=== PATIENT | female | born 1940 | race Caucasian/White ===

== ENCOUNTER 2019-12-14 20:40 | Observation (INO) | payer MEDICARE ==
[~2019-12-14] VITALS: Ht 157.5 cm; Wt 45.8 kg
--- NOTE | 2019-12-14 20:41 | NUR ---
PT ARRIVED VIA EMS. SEE TRIAGE NOTE. STROKE ALERT CALLED.. AT BEDSIDE.
--- NOTE | 2019-12-14 20:50 | NUR ---
TELESTOKE IN PROGRESS.
[2019-12-14 21:09] LABS: GFR > 60 ML/MIN (>=60 (CALC)); GFR FOR AFR.AMER. > 60 ML/MIN (>=60 (CALC))
[2019-12-14 21:10] LABS: HEMATOCRIT 39.8 % (37.0-47.0); HEMOGLOBIN 12.2 g/dl (12.0-16.0); MEAN CELL VOLUME 92.8 fL CALC (80.0-100.0); MEAN CORPUSCULAR HGB 28.4 pG CALC (26.0-32.0); MEAN CORPUSCULAR HGB CONC 30.7 g/L CALC (32.0-36.0); NEUT# 3.17 thou/uL (2.00-7.15); RED BLOOD COUNT 4.29 mill/uL (4.20-5.60); RED CELL DISTRI WIDTH 14.3 % (11.5-15.5)
[2019-12-14 21:31] LABS: ACT PARTIAL THROMBO TIME 25.9 SECONDS (20.0-32.5); ALBUMIN 4.5 g/dL (3.2-5.0); ALKALINE PHOSPHATASE 104 u/l (38-126); ANION GAP 22 (6-22 (CALC)); BILIRUBIN, TOTAL 0.6 mg/dL (0.0-1.4); BUN 13 mg/dL (8-23); BUN/CREATININE RATIO 16 (12-20 (CALC)); CARBON DIOXIDE 18 mmol/l (22-30); CHLORIDE 101 mmol/l (95-108); CREATININE 0.8 mg/dL (0.5-1.0); GFR > 60 ML/MIN (>=60 (CALC)); GFR FOR AFR.AMER. > 60 ML/MIN (>=60 (CALC)); POTASSIUM 3.9 mmol/l (3.5-5.1); PROTHROMBIN TIME 10.4 SECONDS (9.0-12.5); SGOT/AST 36 u/l (9-36); SODIUM 137 mmol/l (137-146)
[2019-12-14 21:43] LABS: MYOGLOBIN 294 ng/mL (0 - 62)
--- NOTE | 2019-12-14 22:30 | NUR ---
PT RESTING. NAD. TROUBLE FOLLOWING COMMANDS. A/O AT PRESENT.
--- NOTE | 2019-12-14 23:50 | NUR ---
REPORT TO FAYE MARCUS/ICU AND PT TRANSFERRED TO FLOOR VIA STRETCHER WITH PORTABLE MONITOR. BY Sujey FORBES RN.
[2019-12-15] VITALS (21 sets, daily range): BP systolic 85–134; BP diastolic 46–75
--- NOTE | 2019-12-15 | NUR ---
RECEIVED PT FROM ER.
--- NOTE | 2019-12-15 00:10 | NUR ---
PT ASSISTED TO BED 3. [facility] PERFORMED WITH CREW MESS ATTENDANTFAYE GAYTAN. NO CHANGES NOTED.
[2019-12-15 01:17] LABS: URINE BILIRUBIN - DIPSTICK NEGATIVE (NEGATIVE); URINE BLOOD DIPSTICK TRACE-INTACT (NEGATIVE); URINE COLOR YELLOW; URINE GLUCOSE - DIPSTICK NEGATIVE (NEGATIVE); URINE KETONE NEGATIVE (NEGATIVE); URINE LEUK ESTERASE NEGATIVE (NEGATIVE); URINE NITRITE - DIPSTICK NEGATIVE (Negative); URINE PROTEIN - DIPSTICK NEGATIVE (NEG-TRACE); URINE SPECIFIC GRAVITY 1.015; URINE UROBILINOGEN - DIPSTICK 0.2 E.U./dL (0.2)
--- NOTE | 2019-12-15 02:00 | NUR ---
PT WITH EYES CLOSED, REPSONDS TO VERBAL STIMULI. NO NEEDS AT THIS TIME. CALL PATEL IN REACH.
--- NOTE | 2019-12-15 04:00 | NUR ---
PT WITH EYES CLOSED, RESPONDED TO VERBAL STIMULI. ABLE TO FOLLOW COMMANDS. PT WITH MULTI BLANKETS ON AND ROOM WARM. SPOUSE SLEEPING IN CHAIR. CALL PATEL IN REACH.
--- NOTE | 2019-12-15 06:00 | NUR ---
PT WITH EYES CLOSED, RESPONDED TO VERBAL STIMULI. NEURO CHECK ACCOMP, NO DEFICIT FROM PREVIOUS EXAMS NOTED. CALL PATEL IN REACH.
--- NOTE | 2019-12-15 08:00 | NUR ---
PT SEEN AT REST IN THE BED WITH AT BEDSIDE. PT IS TALKATIVE, AWARE OF SITUATION, ABLE TO STATE THAT SHE AND HER HAVE DEMENTIA. NO EVIDENCE OF STROKE PER LEVEL SMILE, EVEN OSTEOPATHIC NEUROLOGIST. LUNGS CLEAR, RA. PT COMPLAINS OF LEFT IV SITE HURTING WITH MOVEMENT.
[2019-12-15 09:09] LABS: CHOLESTEROL HDL RATIO 4.2 (<4.4 (CALC))
--- NOTE | 2019-12-15 10:00 | NUR ---
PT SEEN BY DR GAYTAN THIS MORNING, MRI ORDERED. PT CONTINUES WITH AT BEDSIDE, BOTH CONFUSED, AWARE OF IT, HELP EACH OTHER MUCH THEY CAN.
--- NOTE | 2019-12-15 12:00 | NUR ---
PT HAS BEEN TO MRI AND BACK, NOW BACK IN ROOM RESTING IN BED WITH AT BEDSIDE. NO COMPLAINTS, NO EVIDENCE OF STROKE OR SEIZURE.
--- NOTE | 2019-12-15 14:00 | NUR ---
PT REFUSED BATH OPPORTUNITY AT THIS TIME, SAID THAT SHE WOULD WASH UP TOMORROW. REMAINS IN ROOM. OCCASIONAL VISITOR TO ROOM.
--- NOTE | 2019-12-15 16:00 | NUR ---
PT CONTINUES BEFORE, RESTS IN THE BED IN NO DISTRESS. AT BEDSIDE.
--- NOTE | 2019-12-15 19:25 | NUR ---
PATIENT IS ALERT AND ORIENTED TO NAME,, AGE, CURRENT MONTH AND YEAR, PLACE. SHE WANTS TO KNOW HOW SHE ENDED UP IN THE HOSPITAL, PATIENT WAS EXPLAINED WHY, POC FOR TONIGHT, APTIENT AGREES. ON RA, SATS 97%, NO SOB NOTED. HEAD TO TOE NURSING ASSESSMENT PERFROMED. SR ON TELEMETRY, HR RANGES 70- 80 BPM. LFA 20 G IV INTCAT AND FLSUHES PROPERLY. NO COMPLAINTS OF PAIN, COMPLAINS OF FEELING TIRED AND CRAMPS. FOLLOWS ALL DIRECTIONS, ANSWERS QUESTIONS. HAS BILATERAL, EQUAL MODERATE BROOM STITCHER. NO FACIAL DROOP OR SLURRING NOTED. CALL LIGHT WITHIN REACH. WILL CONTINUE TO MONITOR.
--- NOTE | 2019-12-15 20:05 | NUR ---
ICE WATER PROVIDED TO PATIENT, AT BEDSIDE.
--- NOTE | 2019-12-15 20:22 | NUR ---
PATIENT'S FRIEND ON PHONE, FRINED WOULD LIKE TO TALK PATIENT, PATIENT AGREES, CALL TRANSFERRED TO PT PHONE AND HANDED TO PATIENT.
--- NOTE | 2019-12-15 23:00 | NUR ---
PATIENT GETS UP FROM BED. CONFUSED, TAKES TELE, BP CUFF, PULSE OX. REDIRECTED, REASSURED. WASHES HER TEETH USES THE BATHROOM. COMPLAINS ABOUT MONITOR ALARMING AND BR LIGHT ON. EXPLAINED WHY THE ALARMS ARE ON. PATIENT LAYS BACK IN BED. CALL LIGHT WITHIN REACH.
--- NOTE | 2019-12-15 23:30 | NUR ---
BED ALARMING, PATIENT IS GETTING UP FROM BED, CONFUSED, REPORTS SHE GOT UP TO "LOCK THE DOOR," DOES NOT KNOW WHERE SHE IS AT. PATIENT REORIENTED, REASSURED. LAYS BACK IN BED. LIGHT AND TV TURNED OFF. CALL LIGHT ITHIN REACH.
--- NOTE | 2019-12-15 23:53 | NUR ---
PATIENT'S WALKS OUT OF ROOM, LOOKS AROUND, ASKED IF HE NEEDED ANYTHING, STATES, "NO," AND WALKS BACK INTO ROOM.
[2019-12-16] VITALS (7 sets, daily range): BP systolic 83–114; BP diastolic 51–69
--- NOTE | 2019-12-16 01:43 | NUR ---
BED ALARMING. PT ATTEMPTS TO GET UP TO GO TO BATHROOM, ASSISTED STANDBY, VOIDED SMALL AMOUNT. NOW LAYS BACK IN BED, MONITOR PLACED BACK ON. PATIENT REORIENTED, REPORTS SHE THOUGHT IT WAS TIME TO GET UP AND THAT'S WHY SHE WAS ALSO PULLING HER TELEMETRY OFF. CALL LIGHT WITHIN REACH.
--- NOTE | 2019-12-16 03:54 | NUR ---
PATIENT LAYS ON HER LEFT SIDE, RESTS WITH EYES CLOSED. AT BEDSIDE.
--- NOTE | 2019-12-16 05:53 | NUR ---
PATIENT RESTS WITH EYES CLOSED. NO ACUTE DISTRES SSHOWN. AT BEDSIDE. CALL LIGHT WITHIN REACH.
--- NOTE | 2019-12-16 06:45 | NUR ---
RECIEVED REPORT FROM FAYE BOYER. ASSUMED PT CARE.
--- NOTE | 2019-12-16 08:00 | NUR ---
PT SITTING ON THE SIDE OF BED, REFUSING TO EAT BREAKFAST, PT CONCERN OF THE COST INSUED FROM HER STAY AT THIS HOTEL. PT REMAINS AT BEDSIDE, UNABLE TO TELL THIS STAFF WHERE HE IS AT EITHER. PT IS ALERT TO SELF AND TIME, NOT PLACE. PT PACING BACK AND FORTH FROM PT ROOM TO DESK, UNABLE TO RECALL WHY. PT UNABLE TO RECALL WHERE SHE IS OR WHY SHE IS HERE. BREAKFAST TRAY SET UP PT ASSURED THAT THE MEAL WAS INCLUDED AND THE SHE SHOULD EAT. PT AGREED TO EAT THE MEAL.
--- NOTE | 2019-12-16 08:15 | NUR ---
NOTIFIED PT CONTACT GILBERTO AND CAMPOS MENDEZ. CAMPOS SHARED PT HISTORY THAT SHE HAD BEEN HOMELESS AND LIVING IN HER CAR IN [place], [place]. THEY HAD THE PT COME DOWN HERE HE WAS IN A FACILITY AND THE PT WAS HOMELESS, LIVING IN THE CAR DURING THE WINTER. PT SON BROUGHT THE COUPLE DOWN HERE AND DROPPED THEM OFF, THEY ARE CURRENTLY LIVING IN AN PARK THAT IS OWNED BY FRIENDS (CAMPOS & Gilberto). NOTIFIED [facility] IRELAND .
--- NOTE | 2019-12-16 09:08 | NUR ---
DR. GAYTAN AT [facility] FOR ASSESSMENT AND TO DISCUSS PLAN OF CARE. DR. GAYTAN MADE AWARE OF CURRENT SITUATION.
--- NOTE | 2019-12-16 09:35 | NUR ---
DR. GAYTAN AND [facility] IRELAND AT BEDSIDE TO DISCUSS A VIABLE PLAN FOR DISCHARGE. PT AND PT REFUSED REHAB OR [facility]. CALL LPLACE TO FAMILY FRIENDS CAMPOS AND JEFF MENDEZ. CAMPOS STATED HE WOULD COME MEET WITH CM ETA, IN 30MIN.
--- NOTE | 2019-12-16 10:09 | NUR ---
PT RESTING IN BED, WATCHING TV. REMAINS AT BEDSIDE.
--- NOTE | 2019-12-16 10:54 | NUR ---
CAMPOS AND JEFF ARRIVED ON UNIT, MITZI IRELAND AND DR. GAYTAN NOTIFIED.
--- NOTE | 2019-12-16 11:17 | NUR ---
PT HAD VISITORS AT BEDSIDE FOR VISIT.
--- NOTE | 2019-12-16 11:39 | NUR ---
MITZI IRELAND AT BEDSIDE.
--- NOTE | 2019-12-16 13:00 | NUR ---
Discharge instructions given. Patient verbalizes understanding of same. Discharged in stable condition via Wheelchair to Home with family. All belongings sent with pt.
== END 2019-12-16 13:00 | disposition home or self-care (01) ==
LOC: ED 20:40 → ED-I 22:50 → ED 23:19 → ICU 23:20
PROVIDERS: Emergency Medicine; Internal Medicine; ADMIT Internal Medicine; ATTEND Internal Medicine
DX: R56.9 Unspecified convulsions (principal); F03.90 Unspecified dementia, unspecified severity, without behavioral disturbance, psychotic disturbance, mood disturbance, and anxiety; E03.9 Hypothyroidism, unspecified; Z87.891 Personal history of nicotine dependence; Z74.2 Need for assistance at home and no other household member able to render care
CPT/HCPCS: G0378; Q9967